=== PATIENT | male | born 1980 | race Caucasian/White ===

== ENCOUNTER → 2021-04-22 15:39 | Outpatient (CLI) | payer OTHER, SELFPAY ==
--- NOTE | ~2021-04-22 | CT_ITS ---
EXAMINATION: CT sinus wo con DATE: 04/22/2021 15:56 INDICATION: Allergic rhinitis TECHNIQUE: Computed tomography (CT) of the paranasal sinuses was performed without intravenous contra st. The dose-length product was 269.39 mGy-cm. Automated exposure control and iterative reconstructio n technique were employed. COMPARISON: None FINDINGS: There is mucous retention cyst in the maxillary and frontal sinuses. There is a mucous rete ntion cyst measuring up to 4 cm in the left maxillary sinus. No significant mucoperiosteal reaction. No significant nasal septal deviation. The right ostiomeatal unit is occluded by soft tissue. Left os tiomeatal unit is patent. There are small bilateral mastoid effusions. IMPRESSION: 1. Mild sinus disease with mucous retention cyst of the left maxillary sinus and occlusion of the rig ht ostiomeatal unit. 2: Small bilateral mastoid effusions. Reviewed, dictated and finalized at location A. IMPRESSION: 1. Mild sinus disease with mucous retention cyst of the left maxillary sinus an d occlusion of the right ostiomeatal unit. 2: Small bilateral mastoid effusions.
== END ==
PROVIDERS: PCP Internal Medicine; Visit Provider Internal Medicine
DX: J32.0 Chronic maxillary sinusitis (principal)
CPT/HCPCS: 70486

== ENCOUNTER → 2021-07-15 08:11 | Outpatient (CLI) | payer OTHER, SELFPAY ==
--- NOTE | ~2021-07-15 | US_ITS ---
US right upper quadrant INDICATION: Elevated liver function tests PROCEDURE: Realtime right upper abdominal ultrasound. COMPARISON: No prior studies for comparison. FINDINGS: The pancreas is normal without focal mass or pancreatic ductal dilation. Liver echotexture is increased, consistent with fatty infiltration. There is normal directional flow in the portal ve in. The gallbladder is normal without stones, gallbladder wall thickening or pericholecystic fluid. Comm on bile duct measures 4.2 mm. No sonographic Méndez's sign. IMPRESSION: 1: Hepatic steatosis. Reviewed, dictated and finalized at location A. [employer] PROFESS[employer] IMPRESSION: 1: Hepatic steatosis.
== END ==
PROVIDERS: PCP Internal Medicine; Visit Provider Internal Medicine Gastroenterology
DX: R79.89 Other specified abnormal findings of blood chemistry (principal); K76.0 Fatty (change of) liver, not elsewhere classified
CPT/HCPCS: 76705

== ENCOUNTER → 2023-01-30 08:07 | Outpatient (CLI) | payer OTHER, SELFPAY ==
--- NOTE | ~2023-01-30 | US_ITS ---
Limited Abdominal Sonogram: Real-time sonographic imaging of the right upper quadrant was performed. Clinical History: Abnormal enzyme level Findings: The liver is poorly visualized/evaluated due to patient body habitus. Suspected diffuse fa tty infiltration. Main portal vein demonstrates normal direction of flow. The gallbladder is poorly v isualized. No visible gallstones. The common bile duct measures 3 mm. The pancreas, aorta, and IVC a re obscured by bowel gas shadowing. Right kidney measures 11.1 cm in length, without evidence for hyd ronephrosis. Impression: Very limited exam related to patient body habitus, with poor visualization/evaluation of liver, gallb ladder, and retroperitoneal structures.. Suspected fatty infiltration of liver. Reviewed, dictated and finalized at location . Impression: Very limited exam related to patient body habitus, with poor visualization/eval uation of liver, gallbladder, and retroperitoneal structures.. Suspected fatty infiltration of liver.
== END ==
PROVIDERS: PCP Internal Medicine Gastroenterology; Visit Provider Internal Medicine
DX: R74.01 Elevation of levels of liver transaminase levels (principal)
CPT/HCPCS: 76705